=== PATIENT | male | born 1960 | race Caucasian/White ===

== ENCOUNTER 2024-11-24 14:56 | Day surgery (SDC) | payer MEDICARE ==
[2024-11-24] MEDS ORDERED: LIDOCAINE HCL 1% AMPUL 5 ML IJ ONE (14:57)
[2024-11-24] MEDS ORDERED: Depo-Medrol 40 MG/ML IM ONE (14:57)
[2024-11-24] MEDS ORDERED: BUPIVACAINE 0.5% VIAL IJ ONE (14:57)
--- NOTE | 2024-11-24 16:35 | XRAY ---
Indication: Right ankle injection. Intraoperative fluoroscopy provided for 7 seconds. Single digital spot image submitted for interpretation demonstrates needle tip projecting over right talotibial joint. Small amount of contrast injected for needle tip placement. Correlate with intraoperative findings/report.
--- NOTE | 2024-11-25 09:23 | XRAY ---
7 seconds of fluoroscopy was used in surgery for a right intra-articular ankle injection.
== END 2024-11-24 16:20 | disposition home or self-care (01) ==
LOC: SDC-PAIN 14:56
PROVIDERS: ATTEND Psychiatry & Neurology Pain Medicine
DX: M25.571 Pain in right ankle and joints of right foot (principal); E11.9 Type 2 diabetes mellitus without complications
CPT/HCPCS: 20610; 73600; 77002; 82947; Q9966